=== PATIENT | female | born 2000 | race Caucasian/White ===

== ENCOUNTER 2024-06-24 13:16 | Outpatient (CLI) | payer BC, SELFPAY ==
--- NOTE | ~2024-06-24 | US_ITS ---
US breast RT limited INDICATION: Palpable right breast lump TECHNIQUE: Dedicated Limited right breast ultrasound COMPARISON: No prior studies for comparison. FINDINGS: The right breast is/are composed of normal heterogeneous echotexture without focal solid or cystic mass. IMPRESSION: 1: Normal limited right breast ultrasound. BI-RADS CATEGORY 1 - NEGATIVE Reviewed, dictated and finalized at location A. IDE POT TENDER
--- OUTSIDE RECORDS SUMMARY | 2024-06-24 14:15 | XMS_ITS | Clinical Summary ---
Author Organization [facility] Address [address] [place] [address]. [place], [place] [id number] [place] [id number] Care Team Providers Care Civil Engineering Technician Name Role Phone None, Provider MD Primary Care Provider Unavaila ble Allergies No known active allergies Medications citalopram (CELEXA) 10 MG tablet Take 1 tablet (10 mg total) by mouth daily. 02/01/2023 Active benzonatate (TESSALON PERLES) 100 MG capsuleIndicati ons:Influenza B Take 1 capsule (100 mg total) by mouth 3 (three) times daily as needed for Cough. 40 capsule 07/03/2023 Active Active Problems Problem Noted Date Diagnosed Date Closed comminuted fracture o f waist of scaphoid bone of right wrist 04/19/2021 Overview (01/17/2022): Added automatically from request for surgery [id number] Amenorrhea 08/07/2013 Dysmenorrhea 08/07/2013 Immunizations Name Administration Dates Next Due Dtap (Acel-Immune) 03/15/2000, 0,04/18/1999,02/14/19 99 HPV4 (Gardasil) 06/14/2014,02/10/2014,12/10/2013 Hib-Hepatitis B (Comvax) 03/15/2000,04/18/1999,0 02/14/1999 MMR (MMRII) 12/19/1999 MODERNA COVID-19 (12+) MRNA, LNP-S, PF, 100 MCG/ 0.5 ML DOSE 07/26/2021,05/29/2021 Polio IPV (Ipol) 06/20/1999,04/18/1999, 9 Social History Tobacco Use Types Packs/Day Years Used Date Smoking Tobacco: Never Passive Smoke Exposure: Never Smokeless Tobacco: Never Alcohol Use Standard Drinks/Week Comments Yes 0 (1 standard drink = 0.6 oz pur e alcohol) PHQ-2 Answer Date Recorded Patient Health Questionnaire-2 Score 0 07/03/2023 Comments No Sex and Gender Information Value Date Recorded Sex Assigned at Female 06/18/2024 4:44 PM LIME SLAKER Legal Sex Female 9:31 PM CDT Gender Identity Not on file Sexual Orientation Not on file Last Filed Vital Signs Vital Sign Reading Time Taken Comments Blood Pressure 121/83 07/03/2023 3:08 PM LIME SLAKER Pulse 102 07/03/2023 3:08 PM LIME SLAKER Temperature 36.8 ??C (98.2 ??F) 07/03/2023 3:08 PM CS T Respiratory Rate 20 07/03/2023 3:08 PM LIME SLAKER Oxygen Saturation 98% 07/03/2023 3:08 PM LIME SLAKER Inhaled Oxygen Concentration - - Weight 54 kg (119 lb) 07/03/2023 3:08 PM LIME SLAKER Height 158.8 cm (5' 2.5 ) 07/03/2023 3:08 PM LIME SLAKER Body Mass Index 21.42 07/03/2023 3:08 PM LIME SLAKER Plan of Treatment Upcoming Encounters Date Type Department Care Team (Late st Contact Info) Description 07/08/2024 1:00 PM LIME SLAKER Appointment [facility] [address] [place], [place] [phone] Serena Wagner, MARCUS [address] [place], [place] [address] 07/08/2024 2:00 PM LIME SLAKER Appointment [facility] [address] [place], [place] [phone] Serena Wagner CN [address] [place], [place] [address] Health Maintenance Due Date Last Done Comments Cervical Cancer Screening Pap Smear (Age 21 to 29) Every 3 Years 1998 Cervical Cancer Screening 1998 Annual Physical 2001 DTaP, Tdap and Td Vaccines (5 - Tdap) 2009 03/15/2000, 06/20/1999, 04/18/1999, Additional history exists Hepatitis C 2016 COVID-19 Vaccine (3 - 2023- season) 2024 07/26/2021, 05/29/2021 Influenza Adult (#1) 2024 PHQ-2 (Physician [place]) 05/27/2024 07/03/2023 Hepatitis B Vaccines Completed 03/15/2000, 04/18/1999, 02/14/1999 HPV Vaccines Completed 06/14/2014, 01/25, 12/10/2013 Meningococcal B Vaccine Aged Out No l onger eligible based on patient's age to complete this topic Meningococcal Vaccine Aged Out No julio cesar maryse eligible based on patient's age to complete this topic Pneumococcal Vaccine: Pediatrics (0 to 5 Years) and At-Risk Patients (6 to 64 Years) Aged Out No longer eligible based on patient's age to complete this topic RSV Immunizations Under 20 Months Aged Out No longer eligible based on patient's age to complete this topic Insurance Care Teams Civil Engineering Technician Relationship Specialty Start Date End Date None, Provider, PCP - General 01/17/22
--- OUTSIDE RECORDS SUMMARY | 2024-06-24 14:15 | XMS_ITS | Referral Summary ---
Author Organization [facility] Address [address] [place] [address] Care Team Providers Care Search Marketing Coordinator Name Role Phone Emily Moon Primary Care Provider [phone] Allergies No known active allergies Medications fexofenadine-ps eudoephedrine (BARNEY-D 24) 180-240 mg per 24 hr tablet Take 1 tablet by mouth daily as needed for allergies Active Active Problems Problem Noted Date Diagnosed Date Closed comminuted fracture o f waist of scaphoid bone of right wrist 04/19/2021 Overview (04/19/2021): Added automatically from request for surgery [id number] Social History Tobacco Use Types Packs/Day Years Used Date Smoking Tobacco: Never Smokeless Tobacco: Never AUDIT-C Answer Date Recorded Q1: How often do you have a drink containing alc ohol? 2-4 times a month 04/26/2021 Q2: How many drinks containi ng alcohol do you have on a typical day when you are drinking? 3 or 4 04/26/2021 Q3: How often do you have si x or more drinks on one occasion? Never 04/26/2021 Personal Safety Answer Date Recorded Getting School Help Needed Not on file 07/20 Comments No Sex and Gender Information Value Date Recorded Sex Assigned at Not on file Legal Sex Female 11:59 PM SECURITY SYSTEMS MANAGER Gender Identity Not on file Sexual Orientation Straight 04/17/2021 8: 35 AM SECURITY SYSTEMS MANAGER Last Filed Vital Signs Vital Sign Reading Time Taken Comments Blood Pressure 117/76 04/26/2021 11:45 AM SECURITY SYSTEMS MANAGER Pulse 78 04/26/2021 11:50 AM SECURITY SYSTEMS MANAGER Temperature 36.8 ??C (98.2 ??F) 04/26/2021 11:[address] Respiratory Rate 19 04/26/2021 11:50 AM SECURITY SYSTEMS MANAGER Oxygen Saturation 97% 04/26/2021 11:50 AM SECURITY SYSTEMS MANAGER Inhaled Oxygen Concentration - - Weight 52.6 kg (116 lb) 04/26/2021 8:30 AM SECURITY SYSTEMS MANAGER Height 160 cm (5' 3 ) 04/26/2021 8:30 AM SECURITY SYSTEMS MANAGER Body Mass Index 20.55 04/26/2021 8:30 AM SECURITY SYSTEMS MANAGER Plan of Treatment Not on file Medical Devices Implanted Type Area Conditioning Coach Device Identifier Shelf Expiration Date Model / Serial / Lot [employer] At2-M18-S Acutrak 2 3.5-3.6mm 18mm Self Cut Cannulated Variable Pitch - [id number] Implanted:Qty: 1 on 04/26/2021 by Hugh Ernandez MD at [facility] Right: Wrist [employer] 12/24/2021 AT2-M18-S / / Description:[employer] AT2-M 18-S ACUTRAK 2 3.5-3.6MM 18MM SELF CUT CANNULATED VARIABLE PITCH - [id number] Insurance ACCESS ANTHEM ACCESS Advance Directives For more information, please contact: [phone] * Full Code (Latest Code Status on File) Date Activated Date Inactivated Comments 04/26/2021 11:22 AM 04/26/2021 4:23 PM Care Teams Search Marketing Coordinator Relationship Specialty Start Date End Date Emily Moon PA [address] [place] [address] PCP - General Family Practice 04/07/21
--- OUTSIDE RECORDS SUMMARY | 2024-06-24 14:15 | XMS_ITS | Clinical Summary ---
Author Organization [facility] Address [address] [place] [id number] Care Team Providers Care Shank Pinner Name Role Phone Emily Moon Primary Care Provider Allergies No known active allergies Medications fexofenadine-ps eudoephedrine (BARNEY-D 24) 180-240 mg per 24 hr tablet Take 1 tablet by mouth daily as needed for allergies Active Active Problems Problem Noted Date Diagnosed Date Closed comminuted fracture o f waist of scaphoid bone of right wrist 04/19/2021 Overview (04/19/2021): Added automatically from request for surgery [id number] Surgical History Surgery Date Site/Laterality Comments NO PAST SURGERIES Medical History Medical History Date Comments Allergic rhinitis Family History Medical History Relation Name Comments Anesthesia problems Neg Hx Social History Tobacco Use Types Packs/Day Years [...] on file Legal Sex Female 11:59 PM TEXTILE SCIENCE TECHNICIAN Gender Identity Not on file Sexual Orientation Straight 04/17/2021 8: 35 AM TEXTILE SCIENCE TECHNICIAN Obstetrics History Last Filed Vital Signs Vital Sign Reading Time Taken Comments Blood Pressure 117/76 04/26/2021 11:45 AM TEXTILE SCIENCE TECHNICIAN Pulse 78 04/26/2021 11:50 AM TEXTILE SCIENCE TECHNICIAN Temperature 36.8 ??C (98.2 ??F) 04/26/2021 11:[address] Respiratory Rate 19 04/26/2021 11:50 AM TEXTILE SCIENCE TECHNICIAN Oxygen Saturation 97% 04/26/2021 11:50 AM TEXTILE SCIENCE TECHNICIAN Inhaled Oxygen Concentration - - Weight 52.6 kg (116 lb) 04/26/2021 8:30 AM TEXTILE SCIENCE TECHNICIAN Height 160 cm (5' 3 ) 04/26/2021 8:30 AM TEXTILE SCIENCE TECHNICIAN Body Mass Index 20.55 04/26/2021 8:30 AM TEXTILE SCIENCE TECHNICIAN Plan of Treatment Health Maintenance Due Date Last Done Comments Cervical Cancer Screening 1998 Depression Screening 1998 Hepatitis C Screening 1998 DTaP/Tdap/Td Vaccine (5 - Tdap) 2009 03/15/2000, 06/20/1999, 04/18/1999, Additional history exists Varicella Vaccines (1 of 2 - 13+ 2-dose series) 12/13/2011 Regular Well Visit/Exam 18-64 2016 Influenza Vaccine (#1) 2024 HPV Vaccines Completed 06/14/2014, 01/25, 12/10/2013 Pneumococcal vaccine <65 Aged Out No longer eligible based on patient's age to complete this topic Medical Devices Implanted Type Area Supervisor Assembly Department Device Identifier Shelf Expiration Date Model / Serial / Lot [employer] At2-M18-S Acutrak 2 3.5-3.6mm 18mm Self Cut Cannulated Variable Pitch - [id number] Implanted:Qty: 1 on 04/26/2021 by Hugh Ernandez MD at [facility] Right: Wrist [employer] 12/24/2021 AT2-M18-S / / Description:[employer] AT2-M 18-S ACUTRAK 2 3.5-3.6MM 18MM SELF CUT CANNULATED VARIABLE PITCH - [id number] Insurance ANTHEM ACCESS ANTHEM ACCESS Advance Directives For more information, please contact: [phone] * Full Code (Latest Code Status on File) Date Activated Date Inactivated Comments 04/26/2021 11:22 AM 04/26/2021 4:23 PM Care Teams Shank Pinner Relationship Specialty Start Date End Date Emily Moon PA [address] [place] [address] PCP - General Family Practice 04/07/21
== END 2024-06-24 13:17 | disposition home or self-care (01) ==
LOC: ANHIMG 13:20
DX: N64.4 Mastodynia (principal); N63.10 Unspecified lump in the right breast, unspecified quadrant
CPT/HCPCS: 76642